=== PATIENT | male | born 1995 | race Caucasian/White ===

== ENCOUNTER 2017-02-23 08:21 | Emergency (ER) | payer OTHER ==
[2017-02-23 08:35] LABS: BASOPHIL COUNT 0.1 K/uL (0-0.1); EOSINOPHIL (%) 3.1 % (0-5); EOSINOPHIL COUNT 0.5 K/uL (0-0.3); HEMATOCRIT 43.5 % (38.0-50.0); IMMATURE GRANULOCYTE (%) 1.5 % (0.0-0.7); IMMATURE GRANULOCYTE COUNT 0.2 K/uL; INSTRUMENT ABS NEUTROPHIL CT 9.3 K/uL; LYMPHOCYTE COUNT 4.4 K/uL (1.0-2.8); MCH 30.8 PG (29.0-34.0); MCHC 34.7 G/DL (30.0-36.0); MCV 88.6 FL (86-99); MEAN PLAT.VOLUME 10.1 uM^3 (9.0-12.4); MONOCYTE (%) 5.2 % (3-12); MONOCYTE COUNT 0.8 K/uL (0-0.8); NEUTROPHIL (%) 61.4 % (45-76); NEUTROPHIL COUNT 9.3 K/uL (1.8-6.4); PLATELET COUNT 292 K/uL (156-360); RBC DIS.WIDTH-CV 11.6 % (11.8-14.6); RBC DIS.WIDTH-SD 37.2 % (39-53); RED BLOOD COUNT 4.91 M/uL (4.00-5.50); WHITE BLOOD COUNT 15.2 K/uL (4.1-10.2)
[2017-02-23 08:43] LABS: AMYLASE 38 IU/L (1-118); CHLORIDE 107 mEq/L (99-109); POTASSIUM 3.7 mEq/L (3.7-5.4); SODIUM 139 mEq/L (136-147)
[2017-02-23 08:45] LABS: GLUCOSE 124 mg/dL (70-99)
[2017-02-23 08:46] LABS: ANION GAP 11 MEQ/L (2-14)
[2017-02-23 08:48] LABS: SERUM ETHYL ALCOHOL < 10 mg/dL
[2017-02-23 08:49] LABS: GFR ESTIMATE (CALCULATED) > 59 mL/min/
[2017-02-23 08:50] LABS: UREA NITROGEN (BUN) 13 mg/dL (9-23)
[2017-02-23 08:52] LABS: LIPASE 54 U/L (1.0-51.0)
[2017-02-23 14:27] LABS: ADD MIUA? YES; BILIRUBIN NEGATIVE; BLOOD SMALL; COLOR STRAW ((YELLOW)); GLUCOSE (STRIP) NEGATIVE; KETONES NEGATIVE; LEUKOCYTES NEGATIVE; NITRITE NEGATIVE; PROTEIN (STRIP) NEGATIVE; UROBILINOGEN 0.2 MG/DL (0.2-1.0)
[2017-02-23 14:32] LABS: BACTERIA NONE SEEN /HPF; EPITHELIAL CELLS NONE SEEN /HPF; MUCUS NONE SEEN /LPF; RED BLOOD CELLS 0-5 /HPF (0-5); UCUL ADDED? NO; WHITE BLOOD CELLS 0-5 /HPF (0-5)
[2017-02-23 14:39] LABS: AMPHETAMINE NEGATIVE (500 ng/mL); BARBITURATES NEGATIVE (200 ng/mL); BENZODIAZEPINES NEGATIVE (150 ng/mL); COCAINE NEGATIVE (150 ng/mL); METHADONE NEGATIVE (200 ng/mL); METHAMPHETAMINE NEGATIVE (500 ng/mL); OPIATES (MORPHINE) PRESUMPTIVE POSITIVE (100 ng/mL); OXYCODONE NEGATIVE (100 ng/mL); PHENCYCLIDINE NEGATIVE (25 ng/mL); PROPOXYPHENE NEGATIVE (300 ng/mL); THC CANNABINOIDS PRESUMPTIVE POSITIVE (50 ng/mL); TRICYCLIC ANTIDEPRESSANTS NEGATIVE (300 ng/mL)
[2017-02-23 14:40] LABS: ADD MEDTOX COMMENT Y; INTERNAL CONTROLS VALID? YES
== END 2017-02-23 19:08 | disposition short-term general hospital (02) ==
LOC: TRA 08:21
PROVIDERS: Emergency Medicine
PROC: 0SSBXZZ Reposition Left Hip Joint, External Approach (ICD-10-PCS; principal; 2017-02-23)
DX: S22.41XA Multiple fractures of ribs, right side, initial encounter for closed fracture (principal); S36.115A Moderate laceration of liver, initial encounter; S32.402A Unspecified fracture of left acetabulum, initial encounter for closed fracture; S73.005A Unspecified dislocation of left hip, initial encounter; S30.1XXA Contusion of abdominal wall, initial encounter; V44.6XXA Car passenger injured in collision with heavy transport vehicle or bus in traffic accident, initial encounter; S00.91XA Abrasion of unspecified part of head, initial encounter; S27.329A Contusion of lung, unspecified, initial encounter; F17.200 Nicotine dependence, unspecified, uncomplicated
CPT/HCPCS: 70450; 70486; 71260; 72125; 72129; 72132; 72170; 72192; 73130; 73501; 73706; 74177; 80048; 81003; 82150; 83690; 84999; 85025; 86850; 86900; 86901; 90832; 99281; 99285; G0480; J1170; J2270